=== PATIENT | female | born 2000 | race Caucasian/White ===

== ENCOUNTER 2019-11-25 21:37 | Inpatient (IN) | payer MEDICAID ==
[2019-11-26] MEDS ORDERED: Bupivacaine 0.25% 10 ML SDV ONE
[2019-11-26] MEDS ORDERED: ePHEDrine Sulfate/0.9% NaCl/Pf 25 MG/5 ML SYRINGE IV ONE
[2019-11-26] MEDS ORDERED: Ondansetron 4 MG/2 ML SDV IVPUSH PRN (01:31)
[2019-11-26] MEDS ORDERED: Sodium Chloride 0.9% 10 ML Syringe FLUSH PRN (01:31)
[2019-11-26] MEDS ORDERED: Ampicillin 2 GM in Sodium Chloride 0.9% 100 ML IV ONE ×2 (01:31→03:00)
[2019-11-26] MEDS ORDERED: Acetaminophen 325 MG Tab PO PRN (01:31)
[2019-11-26] MEDS ORDERED: Lidocaine 1% 50 ML MDV INJECT ONE (01:31)
[2019-11-26] MEDS ORDERED: Nalbuphine 10 MG/ML Syringe IVPUSH PRN (01:31)
[2019-11-26] MEDS ORDERED: Calcium Carbonate 500 MG Tab.Chew PO PRN (01:31)
[2019-11-26] MEDS ORDERED: Oxytocin/Lactated Ringers 10 UNIT/1,000 ML BAG IV SCH ×2 (01:45)
[2019-11-26] MEDS: Lactated Ringers 1,000 ML IV SCH ×5 (02:50→16:16)
[2019-11-26] MEDS: Ampicillin 1 GM in Sodium Chloride 0.9% 100 ML IV SCH ×3 (06:41→14:53)
[2019-11-26] MEDS ORDERED: diphenhydrAMINE 50 MG/ML SDV IVPUSH PRN (08:08)
[2019-11-26] MEDS ORDERED: fentaNYL 100 MCG/2 ML SDV EPIDUR PRN (08:08)
[2019-11-26] MEDS ORDERED: ePHEDrine 50 MG/ML SDV IVPUSH PRN (08:08)
[2019-11-26] MEDS ORDERED: fentaNYL 100 MCG/2 ML SDV ONE (08:16)
[2019-11-26] MEDS: Bupivacaine/fentaNYL/NS 100 ML Bag EPIDUR PRN ×2 (08:20→18:00)
--- NOTE | 2019-11-26 08:43 | PCM.PREANE ---
Preanesthetic Assessment - Procedure Proposed Procedure: cammie - Anesthesia/Transfusion/Family Hx Anesthesia History: No Prior Anesthesia Family History of Anesthesia Reaction: No Transfusion History: No Prior Transfusion(s) - Review of Systems General: No Symptoms Pulmonary: No Symptoms Cardiovascular: No Symptoms Gastrointestinal: Nausea (labor), Vomiting Neurological: No Symptoms Other: Reports: Depression, Anxiety - Physical Assessment Vital Signs: Last Vital Signs Temp 97.6 F 11/25/19 22:15 Pulse 78 11/25/19 22:15 Resp 20 11/25/19 22:15 BP 138/76 11/25/19 22:15 Pulse Ox 98 11/25/19 22:15 Height: 5 ft 6 in Weight: 139.162 kg ASA Class: 3 Mental Status: Alert & Oriented x3 Airway Class: Mallampati = 1 Dentition: Reports: Normal Dentition Thyro-Mental Finger Breadths: 3 Mouth Opening Finger Breadths: 3 ROM/Head Extension: Other Lungs: Clear to Auscultation Cardiovascular: Regular Rate, Regular Rhythm - Lab Values: Laboratory Last Values WBC 12.44 K/mm3 (3.98-10.04) H 11/26/19 01:45 RBC 4.53 M/mm3 (3.98-5.22) 11/26/19 01:45 Hgb 12.3 gm/dl (11.2-15.7) 11/26/19 01:45 Hct 37.7 % (34.1-44.9) 11/26/19 01:45 MCV 83.2 fl (79.4-94.8) 11/26/19 01:45 MCH 27.2 pg (25.6-32.2) 11/26/19 01:45 MCHC 32.6 g/dl (32.2-35.5) 11/26/19 01:45 RDW Std Deviation 40.1 fL (36.4-46.3) 11/26/19 01:45 Plt Count 345 K/mm3 (182-369) 11/26/19 01:45 MPV 9.6 fl (9.4-12.3) 11/26/19 01:45 Neut % (Auto) 73.7 % (34.0-71.1) H 11/26/19 01:45 Lymph % (Auto) 19.2 % (19.3-51.7) L 11/26/19 01:45 [place] % (Auto) 5.6 % (4.7-12.5) 11/26/19 01:45 Eos % (Auto) 0.8 (0.7-5.8) 11/26/19 01:45 Baso % (Auto) 0.1 % (0.1-1.2) 11/26/19 01:45 Neut # (Auto) 9.17 K/mm3 (1.56-6.13) H 11/26/19 01:45 Lymph # (Auto) 2.39 K/mm3 (1.18-3.74) 11/26/19 01:45 [place] # (Auto) 0.70 K/mm3 (0.24-0.36) H 11/26/19 01:45 Eos # (Auto) 0.10 K/mm3 (0.04-0.36) 11/26/19 01:45 Baso # (Auto) 0.01 K/mm3 (0.01-0.08) 11/26/19 01:45 COVID-19 (SEAN) Negative (NEGATIVE) 11/26/19 03:00 - Allergies Allergies/Adverse Reactions: Allergies Allergy/AdvReac Type Severity Reaction Status Date / Time No Known Allergies Allergy Verified 11/26/19 02:38 - Blood Blood Available: No - Acknowledgements Anesthesia Type Planned: Epidural Pt an Appropriate Candidate for the Planned Anesthesia: Yes Alternatives and Risks of Anesthesia Discussed w Pt/Guardian: Yes Pt/Guardian Understands and Agrees with Anesthesia Plan: Yes PreAnesthesia Questionnaire Cardiovascular History: Reports: None Respiratory History: Reports: None Gastrointestinal History: Reports: None : 1 (40) Para: 0 Psychiatric History: Reports: Anxiety, Depression Endocrine/Metabolic History: Reports: Obesity/BMI 30+ Oncologic (Cancer) History: Reports: None - History Comment History Comment: prenatals for meds only - SUBSTANCE USE Smoking Status *Q: Former Smoker Tobacco Use Within Last Twelve Months: Cigarettes, Vaping Second Hand Smoke Exposure: Yes Days Per Week of Alcohol Use: 0 Recreational Drug Use History: No - HOME MEDS Home Medications: Home Meds Vit/FA/Fe Fumarate/Se [ MTR] 1 tab PO DAILY 11/26/19 [History] Sertraline HCl [Zoloft] 50 mg PO DAILY 07/15/20 [History] - CURRENT (IN HOUSE) MEDS Current Meds: Current Medications Acetaminophen (Tylenol) 650 mg PO Q4H PRN PRN Reason: Pain (Mild 1-3) and fever Calcium Carbonate/Glycine (Tums) 1,000 mg PO Q2H PRN PRN Reason: Indigestion Diphenhydramine HCl (Benadryl) 25 mg IVPUSH Q6H PRN PRN Reason: pruritis Ephedrine Sulfate (Ephedrine Sulfate) 5 mg IVPUSH ASDIRECTED PRN PRN Reason: Hypotension Fentanyl (Sublimaze) 100 mcg EPIDUR Q3H PRN PRN Reason: Pain Last Admin: 11/26/19 08:20 Dose: 100 mcg Documented by: Fentanyl/Bupivacaine HCl (Fentanyl/Bupivacaine/Ns 2 Mcg-0.125% 100 Ml) 100 ml EPIDUR ASDIRECTED PRN PRN Reason: Pain Last Admin: 11/26/19 08:20 Dose: 100 ml Documented by: Lactated Ringer's (Ringers, Lactated) 1,000 mls @ 100 mls/hr IV ASDIRECTED PATRICK Last Admin: 11/26/19 08:04 Dose: 100 mls/hr Documented by: Ampicillin Sodium 1 gm/ Sodium (Chloride) 100 mls @ 200 mls/hr IV Q4H PATRICK Last Admin: 11/26/19 06:41 Dose: 200 mls/hr Documented by: Oxytocin/Lactated Ringer's (Pitocin In Lr 10 Units/1,000 Ml) 10 unit in 1,000 mls @ 12 mls/hr IV TITRATE PATRICK; Protocol Last Titration: 11/26/19 06:30 Dose: 12 munits/min, 72 mls/hr Documented by: Oxytocin/Lactated Ringer's (Pitocin In Lr 10 Units/1,000 Ml) 10 unit in 1,000 mls @ 100 mls/hr IV .CONTINUOUS PATRICK; Protocol Nalbuphine HCl (Nubain) 10 mg IVPUSH Q2H PRN PRN Reason: Pain Ondansetron HCl (Zofran) 4 mg IVPUSH Q4H PRN PRN Reason: Nausea/Vomiting Sodium Chloride (Saline Flush) 10 ml FLUSH ASDIRECTED PRN PRN Reason: Keep Vein Open Discontinued Medications Fentanyl (Sublimaze) Confirm Administered Dose 100 mcg .ROUTE .STK-MED ONE Stop: 11/26/19 08:17 Ampicillin Sodium 2 gm/ Sodium (Chloride) 100 mls @ 200 mls/hr IV ONETIME ONE Stop: 11/26/19 03:29 Last Admin: 11/26/19 02:49 Dose: 200 mls/hr Documented by: Lidocaine HCl (Xylocaine 1%) 50 ml INJECT ONETIME ONE Stop: 11/26/19 01:32
--- NOTE | 2019-11-26 18:22 | PCM.LDHP ---
L&D History of Present Illness - General Date of Service: 11/26/19 Admit Problem/Dx: Patient Status Order with Admit Dx/Problem 11/25/19 22:02 Patient Status [ADT] Routine 11/26/19 01:31 Patient Status [ADT] Routine Admission Diagnosis/Problem Admission Diagnosis/Problem - History of Present Illness Introduction:: 19 year old at 40w here with early labor. Painful contractions and GBS positive living 1+ hour from the hospital so decision made for induction of labor. PNC in [place] transferred to myself without complications. Pain Score: 10 - Related Data Allergies/Adverse Reactions: Allergies Allergy/AdvReac Type Severity Reaction Status Date / Time No Known Allergies Allergy Verified 11/26/19 02:38 Home Medications: Home Meds Vit/FA/Fe Fumarate/Se [ MTR] 1 tab PO DAILY 11/26/19 [History] Sertraline HCl [Zoloft] 50 mg PO DAILY 11/26/19 [History] Past Medical History Cardiovascular History: Reports: None Respiratory History: Reports: None Gastrointestinal History: Reports: None Psychiatric History: Reports: Anxiety, Depression Endocrine/Metabolic History: Reports: Obesity/BMI 30+ Oncologic (Cancer) History: Reports: None - History Comment History Comment: prenatals for meds only Social & Family History - Family History Family Medical History: Noncontributory - Tobacco Use Smoking Status *Q: Former Smoker Used Tobacco, but Quit: Yes Month/Year Tobacco Last Used: 02/2019 Second Hand Smoke Exposure: Yes - Caffeine Use Caffeine Use: Reports: None - Alcohol Use Days Per Week of Alcohol Use: 0 - Recreational Drug Use Recreational Drug Use: No H&P Review of Systems - Review of Systems: Review Of Systems: See Below General: Reports: No Symptoms HEENT: Reports: No Symptoms Pulmonary: Reports: No Symptoms Cardiovascular: Reports: No Symptoms Gastrointestinal: Reports: No Symptoms Genitourinary: Reports: No Symptoms Musculoskeletal: Reports: No Symptoms Skin: Reports: No Symptoms Psychiatric: Reports: No Symptoms Neurological: Reports: No Symptoms Hematologic/Lymphatic: Reports: No Symptoms Immunologic: Reports: No Symptoms L&D Exam - Exam Exam: See Below - Vital Signs Vital Signs: Last Vital Signs Temp 36.4 C 11/25/19 22:15 Pulse 78 11/25/19 22:15 Resp 20 11/25/19 22:15 BP 138/76 11/25/19 22:15 Pulse Ox 98 11/25/19 22:15 Weight: 139.162 kg - OB Specific Contraction Intensity: Mild to Moderate Movement: Active Heart Tones: Present Heart Rate (FHR) Variability: Moderate (6-25 bmp) - Salmon Score Salmon Score Cervix Position: Midposition (AROM clear fluid) Salmon Score Consistency: Soft Salmon Score Effacement: >80% Salmon Score Dilation: 3-4 cm Salmon Score Infant's Station: -2 Salmon Score Total: 9 - Exam General: Alert, Oriented HEENT: PERRLA, Conjunctiva Clear, EACs Clear, EOMI, Hearing Intact, Mucosa Moist & [place], Nares Patent, Normal Nasal Septum, Posterior Pharynx Clear, TMs Clear Neck: Supple, Trachea Midline Lungs: Clear to Auscultation, Normal Respiratory Effort Cardiovascular: Regular Rate, Regular Rhythm GI/Abdominal Exam: Normal Bowel Sounds, Soft, Non-Tender, No Organomegaly, Other (gravid, efw 3600) Genitourinary: Normal bimanual exam Back Exam: Normal Inspection, Full Range of Motion Extremities: Normal Inspection, Normal Range of Motion, Non-Tender, No Pedal Edema, Normal Capillary Refill Skin: Warm, Dry, Intact Neurological: Cranial Nerves Intact, Reflexes Equal Bilateral Psychiatric: Alert, Normal Affect, Normal Mood - Patient Data Lab Results Last 24 hrs: Laboratory Results - last 24 hr 11/26/19 11/26/19 Range/Units 01:45 03:00 WBC 12.44 H (3.98-10.04) K/mm3 RBC 4.53 (3.98-5.22) M/mm3 Hgb 12.3 (11.2-15.7) gm/dl Hct 37.7 (34.1-44.9) % MCV 83.2 (79.4-94.8) fl MCH 27.2 (25.6-32.2) pg MCHC 32.6 (32.2-35.5) g/dl RDW Std Deviation 40.1 (36.4-46.3) fL Plt Count 345 (182-369) K/mm3 MPV 9.6 (9.4-12.3) fl Neut % (Auto) 73.7 H (34.0-71.1) % Lymph % (Auto) 19.2 L (19.3-51.7) % [place] % (Auto) 5.6 (4.7-12.5) % Eos % (Auto) 0.8 (0.7-5.8) Baso % (Auto) 0.1 (0.1-1.2) % Neut # (Auto) 9.17 H (1.56-6.13) K/mm3 Lymph # (Auto) 2.39 (1.18-3.74) K/mm3 [place] # (Auto) 0.70 H (0.24-0.36) K/mm3 Eos # (Auto) 0.10 (0.04-0.36) K/mm3 Baso # (Auto) 0.01 (0.01-0.08) K/mm3 COVID-19 (SEAN) Negative (NEGATIVE) Result Diagrams: 11/26/19 01:45 Problem List Initiated/Reviewed/Updated: Yes Orders Last 24hrs: Active Orders 24 hr Category Date Time Status Patient Status [ADT] Routine ADT 11/26/19 01:31 Active Activity as Tolerated [RC] PFP Care 11/26/19 01:31 Active Communication Order [RC] ASDIRECTED Care 11/26/19 01:31 Active Heart Tones [RC] ASDIRECTED Care 11/26/19 01:31 Active Notify Provider [RC] ASDIRECTED Care 11/26/19 08:08 Active Notify Provider [RC] PFP Care 11/26/19 01:31 Active Notify Provider [RC] PRN Care 11/26/19 01:31 Active Peripheral IV Care [RC] . DIRECTED Care 11/26/19 01:31 Active Urinary Catheter Assessment [RC] ASDIRECTED Care 11/26/19 01:31 Active Vital Signs [RC] PER UNIT ROUTINE Care 11/25/19 22:02 Active Vital Signs [RC] PER UNIT ROUTINE Care 11/26/19 01:31 Active RAPID PLASMA REAGIN,RPR [CHEM] Routine Lab 11/26/19 01:45 Received Acetaminophen [Tylenol] Med 11/26/19 01:31 Active 650 mg PO Q4H PRN Ampicillin 1 gm Med 11/26/19 07:00 Active Sodium Chloride 0.9% [Normal Saline] 100 ml IV Q4H Bupivacaine/fentaNYL/NS [fentaNYL/Bupivacaine/NS 2 MCG- Med 11/26/19 08:08 Active 0.125% 100 ML] 100 ml EPIDUR ASDIRECTED PRN Calcium Carbonate [Tums] Med 11/26/19 01:31 Active 1,000 mg PO Q2H PRN Lactated Ringers [Ringers, Lactated] 1,000 ml [facility] 11/26/19 01:45 Active IV ASDIRECTED Nalbuphine [Nubain] Med 11/26/19 01:31 Active 10 mg IVPUSH Q2H PRN Ondansetron [Zofran] Med 11/26/19 01:31 Active 4 mg IVPUSH Q4H PRN Oxytocin/Lactated Ringers [Pitocin in LR 10 Units/1,000 Med 11/26/19 01:45 Active ML] 10 unit in 1,000 ml IV .CONTINUOUS Oxytocin/Lactated Ringers [Pitocin in LR 10 Units/1,000 Med 11/26/19 01:45 Active ML] 10 unit in 1,000 ml IV TITRATE Sodium Chloride 0.9% [Saline Flush] [facility] 11/26/19 01:31 Active 10 ml FLUSH ASDIRECTED PRN diphenhydrAMINE [Benadryl] [facility] 11/26/19 08:08 Active 25 mg IVPUSH Q6H PRN ePHEDrine [ePHEDrine sulfate] [facility] 11/26/19 08:08 Active 5 mg IVPUSH ASDIRECTED PRN fentaNYL [Sublimaze] [facility] 11/26/19 08:08 Active 100 mcg EPIDUR Q3H PRN Electronic Heart Tones Ext w TOCO [WOMSER] Ot 11/26/19 01:31 Ordered Routine Electronic Heart Tones Internal [WOMSER] Per Unit Ot 11/26/19 01:31 Ordered Routine Peripheral IV Insertion Adult [OM.PC] Routine Oth 11/26/19 01:31 Ordered Resuscitation Status Routine Resus Stat 11/25/19 22:02 Ordered Medication Orders Acetaminophen (Tylenol) 650 mg PO Q4H PRN PRN Reason: Pain (Mild 1-3) and fever Calcium Carbonate/Glycine (Tums) 1,000 mg PO Q2H PRN PRN Reason: Indigestion Diphenhydramine HCl (Benadryl) 25 mg IVPUSH Q6H PRN PRN Reason: pruritis Ephedrine Sulfate (Ephedrine Sulfate) 5 mg IVPUSH ASDIRECTED PRN PRN Reason: Hypotension Fentanyl (Sublimaze) 100 mcg EPIDUR Q3H PRN PRN Reason: Pain Last Admin: 11/26/19 08:20 Dose: 100 mcg Documented by: PRIYA Fentanyl/Bupivacaine HCl (Fentanyl/Bupivacaine/Ns 2 Mcg-0.125% 100 Ml) 100 ml EPIDUR ASDIRECTED PRN PRN Reason: Pain Last Admin: 11/26/19 18:00 Dose: 100 ml Documented by: Admin: 11/26/19 08:20 Dose: 100 ml Documented by: [email or web address] Lactated Ringer's (Ringers, Lactated) 1,000 mls @ 100 mls/hr IV ASDIRECTED [facility] Last Admin: 11/26/19 16:16 Dose: 100 mls/hr Documented by: Infusion: 11/26/19 16:16 Dose: 100 mls/hr Documented by: Admin: 11/26/19 10:06 Dose: 100 mls/hr Documented by: Infusion: 11/26/19 10:06 Dose: 100 mls/hr Documented by: Admin: 11/26/19 09:06 Dose: 100 mls/hr Documented by: Infusion: 11/26/19 09:06 Dose: 100 mls/hr Documented by: Admin: 11/26/19 08:04 Dose: 100 mls/hr Documented by: Infusion: 11/26/19 08:04 Dose: 100 mls/hr Documented by: Admin: 11/26/19 02:50 Dose: 100 mls/hr Documented by: VINCENT Ampicillin Sodium 1 gm/ Sodium (Chloride) 100 mls @ 200 mls/hr IV Q4H [facility] Last Admin: 11/26/19 14:53 Dose: 200 mls/hr Documented by: Infusion: 11/26/19 11:37 Dose: 200 mls/hr Documented by: Admin: 11/26/19 11:07 Dose: 200 mls/hr Documented by: Infusion: 11/26/19 07:11 Dose: 200 mls/hr Documented by: Admin: 11/26/19 06:41 Dose: 200 mls/hr Documented by: [id number] Oxytocin/Lactated Ringer's (Pitocin In Lr 10 Units/1,000 Ml) 10 unit in 1,000 mls @ 12 mls/hr IV TITRATE PATRICK; Protocol Last Titration: 11/26/19 06:30 Dose: 12 munits/min, 72 mls/hr Documented by: [id number] Titration: 11/26/19 06:00 Dose: 10 munits/min, 60 mls/hr Documented by: [id number] Titration: 11/26/19 05:30 Dose: 8 munits/min, 48 mls/hr Documented by: [id number] Titration: 11/26/19 04:40 Dose: 6 munits/min, 36 mls/hr Documented by: [id number] Titration: 11/26/19 04:10 Dose: 4 munits/min, 24 mls/hr Documented by: [email or web address] Admin: 11/26/19 03:08 Dose: 2 munits/min, 12 mls/hr Documented by: [id number] Oxytocin/Lactated Ringer's (Pitocin In Lr 10 Units/1,000 Ml) 10 unit in 1,000 mls @ 100 mls/hr IV .CONTINUOUS PATRICK; Protocol Nalbuphine HCl (Nubain) 10 mg IVPUSH Q2H PRN PRN Reason: Pain Ondansetron HCl (Zofran) 4 mg IVPUSH Q4H PRN PRN Reason: Nausea/Vomiting Sodium Chloride (Saline Flush) 10 ml FLUSH ASDIRECTED PRN PRN Reason: Keep Vein Open Assessment/Plan Comment:: Term early labor. Will augment with pitocin and AROM'd now. Anticipate unless otherwise indicated. Antibiotics for GBS.
--- NOTE | 2019-11-26 19:20 | PCM.SN.2 ---
- Free Text/Narrative Note: Stage I - Patient presented in early labor. Progressed to complete with pitocin and AROM. Antibiotics and epidural. Stage II - of viable female, weight 3180g, APGARS at 1849. Head delivered in controlled manner over intact perineum. Body and shoulders atraumatically. Positive cry. Stage III - of intact placenta. 3vc. 2nd degree midline laceration repaired with 3-0 vicryl. EBL 300
[2019-11-26] MEDS ORDERED: Docusate Sodium 100 MG Cap PO PRN (20:19)
[2019-11-26] MEDS ORDERED: Benzocaine/Menthol 20%-0.5% Spray 56 GM Canister TOP PRN (20:19)
[2019-11-26] MEDS ORDERED: Witch Hazel Medicated Pads 40/Jar TOP PRN (20:19)
[2019-11-26] MEDS: Ibuprofen 600 MG Tab PO PRN (21:45)
[2019-11-27] MEDS: Ibuprofen 600 MG Tab PO PRN ×4 (03:06→23:27)
--- NOTE | 2019-11-27 11:40 | PCM48HPAN ---
Post Anesthesia Note - EVALUATION WITHIN 48HRS OF ANESTHETIC Vital Signs in Normal Range: Yes Patient Participated in Evaluation: Yes Respiratory Function Stable: Yes Airway Patent: Yes Cardiovascular Function Stable: Yes Hydration Status Stable: Yes Pain Control Satisfactory: Yes Nausea and Vomiting Control Satisfactory: Yes Mental Status Recovered: Yes Vital Signs: Last Vital Signs Temp 36.8 C 11/27/19 07:54 Pulse 84 11/27/19 07:54 Resp 16 11/27/19 07:54 BP 134/67 11/27/19 07:54 Pulse Ox 99 11/27/19 07:54
[2019-11-27] MEDS: Ampicillin 1 GM in Sodium Chloride 0.9% 100 ML IV SCH (23:33)
--- NOTE | 2019-11-28 07:53 | PCM.DCSUM1 ---
Discharge Summary - Hospital Course Brief History: Admitted in early labor. Augmented. Diagnosis: Stroke: No - Discharge Data Discharge Date: 11/28/19 Discharge Disposition: Home, Self-Care 01 Condition: Good - Referral to Home Health Primary Care Physician: Annie Beltrán MD - Patient Summary/Data Consults: Consultations 11/26/19 20:19 Consult to Case Management/Electrical Project Manager [CONS] Routine - Patient Instructions Diet: Usual Diet as Tolerated Activity: No Strenuous Activities Driving: May Drive Today Showering/Bathing: May Shower Notify Provider of: Fever, Increased Pain, Swelling and Redness, Drainage - Discharge Plan *PRESCRIPTION DRUG MONITORING PROGRAM REVIEWED*: No *COPY OF PRESCRIPTION DRUG MONITORING REPORT IN PATIENT [place]: No Home Medications: Home Meds Vit/FA/Fe Fumarate/Se [ MTR] 1 tab PO DAILY 11/26/19 [History] Sertraline HCl [Zoloft] 50 mg PO DAILY 11/26/19 [History] Referrals: Annie Beltrán MD [Primary Care Provider] - (2 weeks) - Discharge Summary/Plan Comment DC Time >30 min.: Yes - General Info Date of Service: 11/28/19 Functional Status: Reports: Pain Controlled - Review of Systems General: Reports: No Symptoms HEENT: Reports: No Symptoms Pulmonary: Reports: No Symptoms Cardiovascular: Reports: No Symptoms Gastrointestinal: Reports: No Symptoms Genitourinary: Reports: No Symptoms Musculoskeletal: Reports: No Symptoms Skin: Reports: No Symptoms Neurological: Reports: No Symptoms Psychiatric: Reports: No Symptoms - Patient Data Vitals - Most Recent: Last Vital Signs Temp 36.6 C 11/28/19 04:36 Pulse 73 11/28/19 04:36 Resp 14 11/28/19 04:36 BP 142/85 H 11/28/19 04:36 Pulse Ox 99 11/28/19 04:36 Weight - Most Recent: 139.162 kg I&O - Last 24 hours: Intake & Output 11/27/19 11/28/19 11/28/19 22:59 06:59 14:59 Intake Total 120 Balance 120 Lab Results - Last 24 hrs: Laboratory Results - last 24 hr 11/26/19 11/27/19 Range/Units 01:45 20:20 WBC 12.79 H (3.98-10.04) K/mm3 RBC 3.85 L (3.98-5.22) M/mm3 Hgb 10.3 L D (11.2-15.7) gm/dl Hct 32.8 L (34.1-44.9) % MCV 85.2 (79.4-94.8) fl MCH 26.8 (25.6-32.2) pg MCHC 31.4 L (32.2-35.5) g/dl RDW Std Deviation 41.9 (36.4-46.3) fL Plt Count 314 (182-369) K/mm3 MPV 9.7 (9.4-12.3) fl RPR Non-reactive (NONREACTIVE) Med Orders - Current: Current Medications Benzocaine/Menthol (Dermoplast Pain Relief [place]) 0 gm TOP ASDIRECTED PRN PRN Reason: Perineal Comfort Measure Last Admin: 11/26/19 21:44 Dose: 1 canister Documented by: Docusate Sodium (Colace) 100 mg PO BID PRN PRN Reason: Constipation Last Admin: 11/26/19 21:45 Dose: 100 mg Documented by: Ibuprofen (Motrin) 600 mg PO Q6H PRN PRN Reason: Mild pain or fever Last Admin: 11/27/19 23:27 Dose: 600 mg Documented by: Cooper Fletcher (Tucks) 1 pad TOP ASDIRECTED PRN PRN Reason: Pain Last Admin: 11/26/19 21:45 Dose: 1 tub Documented by: Discontinued Medications Acetaminophen (Tylenol) 650 mg PO Q4H PRN PRN Reason: Pain (Mild 1-3) and fever Bupivacaine HCl (Sensorcaine-Mpf 0.25%) 10 ml .ROUTE .STK-MED ONE Stop: 11/26/19 00:01 Calcium Carbonate/Glycine (Tums) 1,000 mg PO Q2H PRN PRN Reason: Indigestion Diphenhydramine HCl (Benadryl) 25 mg IVPUSH Q6H PRN PRN Reason: pruritis Ephedrine Sulfate (Ephedrine Sulfate) 5 mg IVPUSH ASDIRECTED PRN PRN Reason: Hypotension Ephedrine Sulfate (Ephedrine 25 Mg/5 Ml Syringe) 25 mg IV .STK-MED ONE Stop: 11/26/19 00:01 Fentanyl (Sublimaze) 100 mcg EPIDUR Q3H PRN PRN Reason: Pain Last Admin: 11/26/19 08:20 Dose: 100 mcg Documented by: Fentanyl (Sublimaze) Confirm Administered Dose 100 mcg .ROUTE .STK-MED ONE Stop: 11/26/19 08:17 Last Admin: 11/27/19 23:33 Dose: Not Given Documented by: Fentanyl/Bupivacaine HCl (Fentanyl/Bupivacaine/Ns 2 Mcg-0.125% 100 Ml) 100 ml EPIDUR ASDIRECTED PRN PRN Reason: Pain Last Admin: 11/26/19 18:00 Dose: 100 ml Documented by: Lactated Ringer's (Ringers, Lactated) 1,000 mls @ 100 mls/hr IV ASDIRECTED PATRICK Last Admin: 11/26/19 16:16 Dose: 100 mls/hr Documented by: Ampicillin Sodium 1 gm/ Sodium (Chloride) 100 mls @ 200 mls/hr IV Q4H PATRICK Last Admin: 11/27/19 23:33 Dose: Not Given Documented by: Oxytocin/Lactated Ringer's (Pitocin In Lr 10 Units/1,000 Ml) 10 unit in 1,000 mls @ 12 mls/hr IV TITRATE PATRICK; Protocol Last Titration: 11/26/19 06:30 Dose: 12 munits/min, 72 mls/hr Documented by: Oxytocin/Lactated Ringer's (Pitocin In Lr 10 Units/1,000 Ml) 10 unit in 1,000 mls @ 100 mls/hr IV .CONTINUOUS PATRICK; Protocol Ampicillin Sodium 2 gm/ Sodium (Chloride) 100 mls @ 200 mls/hr IV ONETIME ONE Stop: 11/26/19 03:29 Last Admin: 11/26/19 02:49 Dose: 200 mls/hr Documented by: Lidocaine HCl (Xylocaine 1%) 50 ml INJECT ONETIME ONE Stop: 11/26/19 01:32 Last Admin: 11/27/19 23:33 Dose: Not Given Documented by: Nalbuphine HCl (Nubain) 10 mg IVPUSH Q2H PRN PRN Reason: Pain Ondansetron HCl (Zofran) 4 mg IVPUSH Q4H PRN PRN Reason: Nausea/Vomiting Sodium Chloride (Saline Flush) 10 ml FLUSH ASDIRECTED PRN PRN Reason: Keep Vein Open - Exam General: Reports: Alert, Oriented HEENT: Reports: Pupils Equal, Pupils Reactive, EOMI, Mucous Membr. Moist/[place] Neck: Reports: Supple Lungs: Reports: Clear to Auscultation, Normal Respiratory Effort Cardiovascular: Reports: Regular Rate, Regular Rhythm GI/Abdominal Exam: Normal Bowel Sounds, Soft, Non-Tender, No Organomegaly, No Distention, No Abnormal Bruit, No Mass, Pelvis Stable Back Exam: Reports: Normal Inspection, Full Range of Motion Extremities: Normal Inspection, Normal Range of Motion, Non-Tender, No Pedal Edema, Normal Capillary Refill Neurological: Reports: No New Focal Deficit Psy/Mental Status: Reports: Alert, Normal Affect, Normal Mood
== END 2019-11-28 11:45 | disposition home or self-care (01) | DRG 998 ==
LOC: JD.OBCHECK 21:37 → JD.OB 21:37 → JD.OBCHECK 11-26 01:30 → JD.OB 11-26 01:31 → OBSVTOIN 11-26 18:49 → JD.OB 11-26 18:50
PROVIDERS: ADMIT Obstetrics & Gynecology; ATTEND Obstetrics & Gynecology
PROC: 10E0XZZ Delivery of Products of Conception, External Approach (ICD-10-PCS; principal; 2019-11-26)
PROC: 0KQM0ZZ Repair Perineum Muscle, Open Approach (ICD-10-PCS; 2019-11-26)
PROC: 10907ZC Drainage of Amniotic Fluid, Therapeutic from Products of Conception, Via Natural or Artificial Opening (ICD-10-PCS; 2019-11-26)
PROC: 3E0R3BZ Introduction of Anesthetic Agent into Spinal Canal, Percutaneous Approach (ICD-10-PCS; 2019-11-26)
PROC: 00HU33Z Insertion of Infusion Device into Spinal Canal, Percutaneous Approach (ICD-10-PCS; 2019-11-26)
DX: O99.344 Other mental disorders complicating childbirth (principal); F32.9 Major depressive disorder, single episode, unspecified; O99.214 Obesity complicating childbirth; E66.9 Obesity, unspecified; F41.9 Anxiety disorder, unspecified; Z87.891 Personal history of nicotine dependence; O70.1 Second degree perineal laceration during delivery; Z11.59 Encounter for screening for other viral diseases
CPT/HCPCS: 01967; 36415; 51701; 51702; 59025; 59409; 85025; 85027; 86592; A9270-GY; J0171; J0290; J2590; J3010; J3490; J7050; J7120; U0002